=== PATIENT | female | born 1965 | race African-American/Black ===

== ENCOUNTER 2016-10-23 00:38 | Observation (INO) | payer SELFPAY ==
--- NOTE | 2016-10-23 01:20 | ER Document Report ---
ED General - General Chief Complaint: Chest Pain Stated Complaint: CHEST PAIN Time Seen by Provider: 10/23/16 01:07 Notes: Patient is a 51-year-old female who comes emergency department for chief complaint of chest pain, symptoms started prior to arrival while she was in an argument with her significant other, she was given aspirin and nitroglycerin by EMS, she currently denies any pain. She also states that she is "peeing all the time". She admits she is a type II diabetic, she used to be medicated with both blood pressure and diabetes oral medications, she has no primary care physician and takes no medications at this time. She denies ever having a heart attack, she states she thinks she had a stroke from her high blood pressure although she is not sure. She denies smoking, she drinks alcohol occasionally. TRAVEL OUTSIDE OF THE [place] IN LAST 30 DAYS: No - Related Data Allergies/Adverse Reactions: No Known Allergies Allergy (Verified 08/31/13 09:57) Past Medical History - General Information source: Patient - Social History Smoking Status: Never Smoker Frequency of alcohol use: Occasional Drug Abuse: None Lives with: Family Family History: Hypertension, None - Past Medical History Cardiac Medical History: Reports: Hx Hypercholesterolemia, Hx Hypertension Pulmonary Medical History: Reports: Hx Asthma Denies: Hx Tuberculosis Neurological Medical History: Reports: Hx Cerebrovascular Accident Endocrine Medical History: Reports: Hx Diabetes Mellitus Type 2 Psychiatric Medical History: Denies: Hx Depression Surgical Hx: Negative - Immunizations Hx Diphtheria, Pertussis, Tetanus Vaccination: Yes Review of Systems - Review of Systems Constitutional: No symptoms reported EENT: No symptoms reported Cardiovascular: See HPI Respiratory: No symptoms reported Gastrointestinal: No symptoms reported Genitourinary: No symptoms reported Female Genitourinary: No symptoms reported Musculoskeletal: No symptoms reported Skin: No symptoms reported Hematologic/Lymphatic: No symptoms reported Neurological/Psychological: See HPI Physical Exam - Vital signs Vitals: Resp Pulse Ox 16 96 10/23/16 01:03 10/23/16 01:03 Interpretation: Normal - General General appearance: Appears well, Alert In distress: None - HEENT Head: Normocephalic, Atraumatic Eyes: Normal Conjunctiva: Normal Extraocular movements intact: Yes Eyelashes: Normal Pupils: PERRL Mouth/Lips: Normal Mucous membranes: Normal Pharynx: Normal Neck: Normal - Respiratory Respiratory status: No respiratory distress Chest status: Nontender Breath sounds: Normal Chest palpation: Normal - Cardiovascular Rhythm: Regular. No: Tachycardia Heart sounds: Normal auscultation, S1 appreciated, S2 appreciated Murmur: No - Abdominal Inspection: Normal Distension: No distension Bowel sounds: Normal Tenderness: Nontender. No: Tender, Guarding Organomegaly: No organomegaly - Back Back: Normal, Nontender. No: Tender - Extremities General upper extremity: Normal inspection, Nontender, Normal color, Normal ROM , Normal temperature General lower extremity: Normal inspection, Nontender, Normal color, Normal ROM , Normal temperature, Normal weight bearing. No: Rosa's sign - Neurological Neuro grossly intact: Yes Cognition: Normal Orientation: AAOx4 Reynolds Coma Scale Eye Opening: Spontaneous Caitlyn Coma Scale Verbal: Oriented Reynolds Coma Scale Motor: Obeys Commands Reynolds Coma Scale Total: 15 Speech: Normal Motor strength normal: LUE, RUE, LLE, RLE Sensory: Normal - Psychological Associated symptoms: Normal affect, Normal mood - Skin Skin Temperature: Warm Skin Moisture: Dry Skin Color: Normal Course - Re-evaluation Re-evalutation: EKG shows sinus rhythm, no T-wave inversions or ST segment changes in consecutive leads. Patient chest pain-free on my evaluation. She is well- appearing. Clear lungs, soft abdomen. CBC is unremarkable. Chemistry shows hyperglycemia with no acidosis. Urinalysis shows glucose but is generally unremarkable with a few white blood cells and bacteria. Culture placed. Chest x-ray is unremarkable. Cardiac enzymes initially normal. 10/23/16 Cardiac enzymes cycled and still unremarkable. Patient has remained chest pain- free after initial nitroglycerin and aspirin doses. Discussed with Dr. You. Symptoms still concerning, along with patient's history of diabetes, hypertension, and lack of any primary care or cardiology follow-up guaranteed. I did discuss with patient, she states she is in full agreement with telemetry observation admission for additional evaluation. Discussed with Dr. Beckwith, patient will be admitted to telemetry observation. - Vital Signs Vital signs: Temp Pulse Resp BP Pulse Ox 97.9 F 16 135/90 H 99 10/23/16 01:06 10/23/16 04:01 10/23/16 04:00 10/23/16 04:01 - Laboratory Result Diagrams: 10/23/16 01:12 10/23/16 01:12 Laboratory results interpreted by me: 10/23/16 10/23/16 10/23/16 00:53 01:12 01:12 RDW 15.6 H Potassium 3.4 L Glucose 287 H Urine Glucose (UA) >=500 H Urine Blood SMALL H Ur Leukocyte Esterase SMALL H Discharge - Discharge Clinical Impression: Chest pain Qualifiers: Chest pain type: unspecified Qualified Code(s): R07.9 - Chest pain, unspecified Condition: Stable Disposition: ADMITTED OBSERVATION Admitting Provider: Hospitalist Unit Admitted: Telemetry
[2016-10-23 01:26] LABS: ABSOLUTE EOSINOPHILS # (AUTO) 0.3 10^3/uL (0.0-0.6); ABSOLUTE LYMPHOCYTES (AUTO) 1.9 10^3/uL (0.5-4.7); ABSOLUTE MONOCYTES (AUTO) 0.6 10^3/uL (0.1-1.4); ABSOLUTE NEUT (AUTO) 2.6 10^3/uL (1.7-8.2); BASOPHILS % (AUTO) 0.8 % (0-2); EOSINOPHILS % (AUTO) 5.1 % (0-6); HEMATOCRIT 37.5 % (36.0-47.0); HEMOGLOBIN 12.9 g/dL (12.0-15.5); HGB HCT DIFFERENCE 1.2; LYMPHOCYTES % (AUTO) 35.5 % (13-45); MEAN CORPUSCULAR HEMOGLOBIN 30.7 pg (27.0-33.4); MEAN CORPUSCULAR HGB CONC 34.4 g/dL (32.0-36.0); MEAN CORPUSCULAR VOLUME 89 fl (80-97); MONOCYTES % (AUTO) 11.6 % (3-13); RED CELL DISTRIBUTION WIDTH 15.6 % (11.5-14.0); WHITE BLOOD COUNT 5.5 10^3/uL (4.0-10.5)
[2016-10-23 01:49] LABS: APPEARANCE,URINE CLEAR; BILIRUBIN,URINE NEGATIVE (NEGATIVE); GLUCOSE, URINE >=500 mg/dL (NEGATIVE); KETONES,URINE NEGATIVE (NEGATIVE); LEUKOCYTE ESTERASE,URINE SMALL (NEGATIVE); NITRITE,URINE NEGATIVE (NEGATIVE); PROTEIN,URINE NEGATIVE (NEGATIVE); UROBILINOGEN,URINE NEGATIVE mg/dL (<2.0)
[2016-10-23 02:01] LABS: ALANINE AMINOTRANSFERASE 26 U/L (9-52); ALBUMIN 4.1 g/dL (3.5-5.0); ALKALINE PHOSPHATASE 53 U/L (38-126); ANION GAP 15 (5-19); ASPARTATE AMINO TRANSFERASE 20 U/L (14-36); BILIRUBIN,DIRECT 0.4 mg/dL (0.0-0.4); BILIRUBIN,TOTAL 0.5 mg/dL (0.2-1.3); BLOOD UREA NITROGEN 10 mg/dL (7-20); CALCIUM 9.5 mg/dL (8.4-10.2); CARBON DIOXIDE 23 mmol/L (22-30); CHLORIDE 104 mmol/L (98-107); CREATINE KINASE 128 U/L (30-135); CREATININE RESULT 0.61 mg/dL (0.52-1.25); GLUCOSE 287 mg/dL (75-110); POTASSIUM 3.4 mmol/L (3.6-5.0); SODIUM 141.6 mmol/L (137-145); TOTAL PROTEIN 7.4 g/dL (6.3-8.2)
--- NOTE | 2016-10-23 02:11 | RADIOLOGY REPORT (SQ) ---
EXAM DESCRIPTION: CHEST SINGLE VIEW COMPLETED DATE/TIME: 10/23/2016 1:34 am REASON FOR STUDY: chest pain COMPARISON: 01.11.15 EXAM PARAMETERS: NUMBER OF VIEWS: One view. TECHNIQUE: Single frontal radiographic view of the chest acquired. RADIATION DOSE: NA LIMITATIONS: None. FINDINGS: LUNGS AND PLEURA: No opacities, masses or pneumothorax. No pleural effusion. MEDIASTINUM AND HILAR STRUCTURES: No masses. Contour normal. HEART AND VASCULAR STRUCTURES: Heart normal in size. Normal vasculature. BONES: No acute findings. HARDWARE: None in the chest. OTHER: No other significant finding. IMPRESSION: NO ACUTE RADIOGRAPHIC FINDING IN THE CHEST. TECHNICAL DOCUMENTATION: JOB ID: [id number]
[2016-10-23 02:13] LABS: CREATINE KINASE MB 0.89 ng/mL (<4.55)
[2016-10-23 02:15] LABS: TROPONIN I < 0.012 ng/mL
[2016-10-23] MEDS ORDERED: NORMAL SALINE 1000 ML 1,000 ML IV ONE (03:24)
[2016-10-23] MEDS ORDERED: NITROGLYCERIN 0.4 MG/TAB 25 TAB/BOTTLE SL PRN (07:39)
[2016-10-23] MEDS ORDERED: DIAZEPAM 5 MG TABLET PO PRN (07:39)
[2016-10-23] MEDS ORDERED: MORPHINE SULFATE 10 MG/ML INJ IV PRN (07:39)
[2016-10-23] MEDS ORDERED: ASPIRIN 81 MG TABLET, CHEWABLE PO ONE (07:39)
[2016-10-23] MEDS ORDERED: METFORMIN HCL 500 MG TABLET PO SCH (08:00)
[2016-10-23] MEDS ORDERED: ACETAMINOPHEN 325 MG TABLET PO PRN (09:04)
[2016-10-23] MEDS: METOPROLOL SUCCINATE 25 MG TAB.SR.24H PO SCH (09:36)
[2016-10-23] MEDS: FAMOTIDINE 20 MG TABLET PO SCH ×2 (09:36→21:52)
[2016-10-23] MEDS: ASPIRIN 325 MG TABLET, ENT COATED PO SCH (09:37)
[2016-10-23] MEDS: DOCUSATE SODIUM 100 MG CAPSULE PO SCH ×2 (09:37→17:10)
[2016-10-23] MEDS ORDERED: LISINOPRIL 10 MG TABLET PO SCH (10:00)
[2016-10-23 10:13] LABS: CREATINE KINASE MB 0.71 ng/mL (<4.55)
[2016-10-23 10:18] LABS: TROPONIN I < 0.012 ng/mL
[2016-10-23] MEDS: FLUTICASONE NASAL SPRAY 50 MCG/SPRY 120 SPRAY/16 GM NASL SCH ×2 (10:23→21:52)
--- NOTE | 2016-10-23 10:24 | EKG REPORT ---
SEVERITY:- ABNORMAL ECG - SINUS RHYTHM PROBABLE LEFT ATRIAL ABNORMALITY PROBABLE LVH WITH SECONDARY REPOL ABNRM BORDERLINE PROLONGED QT INTERVAL : Confirmed by: Kenya Keenan 23-Oct-2016 10:23:31
[2016-10-23] MEDS ORDERED: GLUCAGON,HUMAN RECOMB 1 MG INJ IM PRN (13:56)
[2016-10-23] MEDS ORDERED: DEXTROSE 40% GEL 15 GM TUBE PO PRN ×2 (13:56)
[2016-10-23] MEDS ORDERED: DEXTROSE 50%-WATER 25 GM/50 ML DISP.SYRIN IV PRN ×2 (13:56)
[2016-10-23] MEDS ORDERED: INSULIN LISPRO 100 UNIT/ML 3 ML VIAL SUBCUT PRN (13:56)
[2016-10-23 14:38] LABS: CREATINE KINASE MB 0.59 ng/mL (<4.55)
[2016-10-23 14:44] LABS: TROPONIN I < 0.012 ng/mL
[2016-10-23] MEDS: GLIPIZIDE 10 MG TABLET PO SCH (17:09)
[2016-10-23] MEDS: METFORMIN HCL 500 MG TABLET PO SCH (17:10)
[2016-10-23 20:25] LABS: CREATINE KINASE MB 0.46 ng/mL (<4.55)
[2016-10-23 20:32] LABS: TROPONIN I < 0.012 ng/mL
--- NOTE | 2016-10-23 21:07 | HISTORY AND PHYSICAL E ---
History and Physical NAME: VIRI PUENTES : 1965 AGE: 51Y ADMITTED: 10/23/2016 ROOM: 533 CHIEF COMPLAINT: Chest pain. HISTORY OF PRESENT ILLNESS: The patient is a 51-year-old female who has a history of diabetes mellitus and hypertension, who has not been on medication for greater than 1 year who presents after developing some substernal chest pain that was a pinching sensation while having an argument. She reports that it came and went easily after 1 minute without any associated diaphoresis, shortness of breath, nausea or vomiting. The patient reports no further chest pain since this time. She reports that she has had a cough for more than 1 month and does have clear sinus drainage which is chronic and bothersome for her. The patient is referred to the hospitalist service for chest pain. PAST MEDICAL HISTORY: 1. Diabetes mellitus. 2. Hypertension. PAST SURGICAL HISTORY: None. SOCIAL HISTORY: She does not smoke. She drinks two 40-ounce beers daily and denies illicit drugs. She denies any history of DTs or seizure. FAMILY HISTORY: Her mother and father both of stroke and they had hypertension. PRIMARY CARE PHYSICIAN: None. ALLERGIES: No known drug allergies. HOME MEDICATIONS: The patient currently takes no medications. CODE STATUS: FULL CODE. Her daughter, Kami Cisse, is her surrogate decision maker. REVIEW OF SYSTEMS: CONSTITUTIONAL: She denies fever or chills, weight loss, weight gain, anorexia. HEENT: Denies visual disturbance, headache, hearing loss. RESPIRATORY: Denies dyspnea, hemoptysis or pleurisy. Admits to cough without sputum production. CARDIAC: Admits to chest pain as outlined above. Denies PND, orthopnea or edema. ABDOMEN: Denies abdominal pain, nausea, vomiting, diarrhea, constipation, hematemesis, melena or hematochezia. GENITOURINARY: Denies dysuria, urgency, frequency or hematuria. SKIN: Denies rash or wounds. MUSCULOSKELETAL: Denies joint pain or swelling. NEUROLOGIC: Denies weakness, numbness, dizziness, dysphasia, dysarthria or ataxia. ENDOCRINE: Admits to polydipsia and polyuria. Denies hot or cold intolerance. PSYCHIATRIC: Denies depression, anxiety, hallucinations or delusions. HEMATOLOGIC: Denies easy bleeding or bruising. LABORATORY VALUES: White count of 5.5, hemoglobin 12.9, hematocrit 37.5 and platelets of 200. Troponin was less than 0.012. Creatinine of 0.61, glucose of 287 and a A1c of 8.4. Albumin of 4.1. Urine reveals small leukocyte esterase, small blood, 3 whites, 1+ bacteria. PHYSICAL EXAMINATION: VITAL SIGNS: Temperature is 97.9. Pulse of 88. Blood pressure of 169/93. Respiratory rate of 20. Saturation of 98% on room air. GENERAL: She is a well-fed, well-nourished female who appears well and is in no acute distress. HEENT: Normocephalic. No scleral icterus. Conjunctivae clear. Extraocular eye movements are intact. The pupils are equal, round, and reactive to light and accommodation. Her mucous membranes are moist. NECK: Reveals her trachea to be midline. She has no thyromegaly. RESPIRATORY: Clear to auscultation bilaterally without wheezes, rhonchi or rales. CARDIOVASCULAR: Regular rate and rhythm without appreciable murmur, rub or gallop. ABDOMEN: Soft, nontender to palpation, nondistended with active bowel sounds. She has no rebound, rigidity or guarding. Negative Zavaleta sign. RECTAL: Deferred. GENITOURINARY: Deferred. EXTREMITIES: Reveal no cyanosis, clubbing or edema. MUSCULOSKELETAL: Reveals no joint swelling or deformity. VASCULATURE: Reveals normal peripheral pulses. NEUROLOGIC: She is alert and oriented to person, place and time. She has normal speech. Her cranial nerves are grossly intact. Strength is 5/5 in all extremities. Tactile sensation is present in all extremities. SKIN: Reveals no rashes, wounds or worrisome skin lesions. PSYCHIATRIC: Normal mood and affect. IMPRESSION: This is a 51-year-old female with: 1. Chest pain. Likely secondary to anxiety or emotional distress. 2. Poorly controlled diabetes mellitus. 3. Hypertension. 4. Allergic rhinitis. 5. Mild hypokalemia. PLAN: 1. For patient's chest pain, we will place her on observation and rule out according to ACS. 2. For her diabetes mellitus, will place patient on metformin and Glipizide. She will be seen by the tobacco educator and we will perform Accu-Cheks before meals and at bedtime. 3. For hypertension, we will begin the patient on lisinopril 20 mg p.o. q.12 h., hydrochlorothiazide 25 mg p.o. daily and metoprolol XL 25 mg p.o. daily. 4. For her allergic rhinitis, we will place patient on Claritin and Flonase. Total time spent with the patient including physical examination, coordination of care and discussion with patient was 45 minutes of time. DICTATING PHYSICIAN: ABDI ENRIQUE M.D. [id number] PHY#: [id number] ID: [id number] JOB#: [id number] ACCT: [id number] cc:ABDI ENRIQUE M.D. >
[2016-10-23] MEDS: LISINOPRIL 10 MG TABLET PO SCH (21:52)
[2016-10-23] MEDS ORDERED: LORATADINE 10 MG TABLET PO SCH (22:00)
[2016-10-23] MEDS ORDERED: ATORVASTATIN CALCIUM 40 MG TABLET PO SCH (22:00)
[2016-10-24 00:49] LABS: URINE BARBITURATES SCREEN NEGATIVE; URINE METHADONE SCREEN NEGATIVE; URINE OPIATES LOW NEGATIVE; URINE PHENCYCLIDINE SCREEN NEGATIVE
[2016-10-24 05:13] LABS: CHOLESTEROL 272.91 mg/dL (0-200); CREATINE KINASE 69 U/L (30-135); Direct HDL 60 mg/dL (>40); TRIGLYCERIDES 110 mg/dL (<150)
[2016-10-24 05:24] LABS: DIRECT LDL 201 mg/dL (<100)
[2016-10-24] MEDS: METFORMIN HCL 500 MG TABLET PO SCH (08:01)
[2016-10-24] MEDS: GLIPIZIDE 10 MG TABLET PO SCH (08:01)
[2016-10-24] MEDS ORDERED: HYDROCHLOROTHIAZIDE 25 MG TABLET PO SCH (10:00)
[2016-10-24] MEDS: ASPIRIN 325 MG TABLET, ENT COATED PO SCH (10:19)
[2016-10-24] MEDS: DOCUSATE SODIUM 100 MG CAPSULE PO SCH (10:19)
[2016-10-24] MEDS: FAMOTIDINE 20 MG TABLET PO SCH (10:19)
[2016-10-24] MEDS: METOPROLOL SUCCINATE 25 MG TAB.SR.24H PO SCH (10:20)
[2016-10-24] MEDS: LISINOPRIL 10 MG TABLET PO SCH (10:21)
[2016-10-24] MEDS: FLUTICASONE NASAL SPRAY 50 MCG/SPRY 120 SPRAY/16 GM NASL SCH (10:21)
[2016-10-24] MEDS ORDERED: ACETAMINOPHEN 325 MG TABLET PO PRN (12:00)
[2016-10-24] MEDS ORDERED: DIAZEPAM 5 MG TABLET PO PRN (12:00)
[2016-10-24 12:11] VITALS: BP 158/93
--- NOTE | 2016-10-24 19:53 | PDOC DISCHARGE SUMMARY ---
General - Admit/Disc Date/PCP Admission Date/Primary Care Provider: 10/23/16 07:40 Discharge Date: 10/24/16 - Discharge Diagnosis (1) Chest pain Is this a current diagnosis for this admission?: Yes (2) Diabetes mellitus type 2 Is this a current diagnosis for this admission?: Yes (3) Dyslipidemia Is this a current diagnosis for this admission?: Yes (4) Hypertensive urgency Is this a current diagnosis for this admission?: Yes - Additional Information Resuscitation Status: Full Code Discharge Diet: Cardiac, Diabetic Discharge Activity: Activity As Tolerated Home Medications: Aspirin [Ecotrin 325 mg EC Tablet] 325 mg PO DAILY #90 tabec 10/24/16 Atorvastatin Calcium [Lipitor 40 mg Tablet] 40 mg PO QHS #30 tablet 10/24/16 Fluticasone Propionate [Flonase Nasal Reston 50 Mcg/Reston 16 gm] 2 spray NASL Q12 #1 bot 10/24/16 Glipizide [Glucotrol 10 mg Tablet] 10 mg PO BIDBS #60 tablet 10/24/16 Lisinopril/Hydrochlorothiazide [Lisinopril-Hctz 20-12.5 mg Tab] 1 each PO BID # 60 tablet 10/24/16 Loratadine [Claritin 10 mg Tablet] 10 mg PO QHS #30 tablet 10/24/16 Metformin HCl [Glucophage 500 mg Tablet] 500 mg PO BIDACBS #60 tablet 10/24/16 Metoprolol Succinate [Toprol Xl 50 mg Tab.sr] 50 mg PO DAILY #30 tab.sr.24h History of Present Illness History of Present Illness: See H&P for full HPI Hospital Course Hospital Course: Patient was brought in and ruled out for acute coronary syndrome. Patient was restarted on blood pressure medications as well as diabetic medications. Patient was advised to stop drinking alcohol. Patient was discharged in stable condition [facility]. Physical Exam Vital Signs: Temp Pulse Resp BP Pulse Ox 98.7 F 75 18 129/81 H 100 10/24/16 11:51 10/24/16 11:51 10/24/16 11:51 10/24/16 11:51 10/24/16 11:51 Intake & Output 10/23/16 10/24/16 10/25/16 06:59 06:59 06:59 Intake Total 1565 Balance 1565 Weight 66.4 kg Exam: General: Awake alert and oriented x3, no acute respiratory distress HEENT: AT/NC, PERRL, EOMI, oropharynx is moist, pink, no scleral icterus, no conjunctival injection Neck: No JVD, trachea midline Chest: Clear to auscultation bilaterally, no wheezes rhonchi or rales CV: Regular rate and rhythm, normal S1 and S2, no murmur, rub, or gallop Abdomen: Soft, nontender to palpation, nondistended, active bowel sounds; no rebound, rigidity, or guarding Extremities: No cyanosis, clubbing or edema Neuro: Cranial nerves II through XII are grossly intact without focal deficits; awake alert and oriented x3 Psych: Normal mood and affect Results Laboratory Results: 10/24/16 03:45 Triglycerides 110 Cholesterol 272.91 H LDL Cholesterol Direct 201 H VLDL Cholesterol 22.0 HDL Cholesterol 60 10/23/16 10/23/16 10/23/16 09:16 13:33 19:40 Creatine Kinase CK-MB (CK-2) 0.71 0.59 0.46 Troponin I < 0.012 < 0.012 < 0.012 10/24/16 03:45 Creatine Kinase 69 CK-MB (CK-2) Troponin I Impressions: Chest X-Ray 10/23/16 01:18 IMPRESSION: NO ACUTE RADIOGRAPHIC FINDING IN THE CHEST. Status: Imported from PACS Qualifiers [facility] BEING DISCHARGED WITH ANY OF THE FOLLOWING DIAGNOSIS?: No Plan Time Spent: Less than 30 Minutes
--- NOTE | 2016-10-24 21:26 | EKG REPORT ---
SEVERITY:- BORDERLINE ECG - SINUS RHYTHM PROBABLE LEFT ATRIAL ABNORMALITY BORDERLINE T ABNORMALITIES, DIFFUSE LEADS : Confirmed by: Kenya Keenan 24-Oct-2016 21:26:03
[2016-10-25] MEDS ORDERED: METOPROLOL SUCCINATE 25 MG TAB.SR.24H PO SCH (10:00)
== END 2016-10-24 12:40 | disposition home or self-care (01) ==
LOC: ER 00:38 → EH 06:43 → UNDOADMOB 06:43 → EH 07:40 → 5 10:11
PROVIDERS: ADMIT Family Medicine; ATTEND Family Medicine
DX: R07.2 Precordial pain (principal); E11.65 Type 2 diabetes mellitus with hyperglycemia; E78.5 Hyperlipidemia, unspecified; I16.0 Hypertensive urgency; R05 Cough; E87.6 Hypokalemia; J30.9 Allergic rhinitis, unspecified; Z79.82 Long term (current) use of aspirin; Z79.899 Other long term (current) drug therapy; Z79.84 Long term (current) use of oral hypoglycemic drugs; Z82.49 Family history of ischemic heart disease and other diseases of the circulatory system
CPT/HCPCS: 93005 ×2; 99285; 36415 ×2; 87086; 82553; 82962 ×2; 82550 ×2; 85025; 80053; 81001; 84484; 80307; 83036; 80061; 71010; 93010 ×2; G0378 ×2; J3490 ×3; J1815; J7030

== ENCOUNTER 2017-07-09 07:39 | Emergency (ER) | payer SELFPAY ==
[2017-07-09] MEDS ORDERED: HYDROMORPHONE HCL INJ/PF 2 MG/ML AMPULE IV ONE ×2 (08:08→11:35)
[2017-07-09] MEDS ORDERED: NORMAL SALINE 1000 ML 1,000 ML IV ONE (08:08)
[2017-07-09 08:27] LABS: ABSOLUTE BASOPHILS # (AUTO) 0.1 10^3/uL (0.0-0.2); ABSOLUTE EOSINOPHILS # (AUTO) 0.2 10^3/uL (0.0-0.6); ABSOLUTE MONOCYTES (AUTO) 0.7 10^3/uL (0.1-1.4); ABSOLUTE NEUT (AUTO) 3.7 10^3/uL (1.7-8.2); BASOPHILS % (AUTO) 1.1 % (0-2); EOSINOPHILS % (AUTO) 2.5 % (0-6); HEMATOCRIT 41.1 % (36.0-47.0); HEMOGLOBIN 14.1 g/dL (12.0-15.5); LYMPHOCYTES % (AUTO) 29.5 % (13-45); MEAN CORPUSCULAR HEMOGLOBIN 29.6 pg (27.0-33.4); MEAN CORPUSCULAR HGB CONC 34.3 g/dL (32.0-36.0); MEAN CORPUSCULAR VOLUME 86 fl (80-97); PLATELET COUNT 231 10^3/uL (150-450); RED BLOOD COUNT 4.77 10^6/uL (3.72-5.28); RED CELL DISTRIBUTION WIDTH 16.1 % (11.5-14.0); SEGMENTED NEUTROPHILS % (AUTO) 55.9 % (42-78); TOTAL CELLS COUNTED % (AUTO) 100 %; WHITE BLOOD COUNT 6.6 10^3/uL (4.0-10.5)
[2017-07-09 08:48] LABS: ALANINE AMINOTRANSFERASE 21 U/L (9-52); ALBUMIN 4.1 g/dL (3.5-5.0); ALKALINE PHOSPHATASE 69 U/L (38-126); ANION GAP 14 (5-19); ASPARTATE AMINO TRANSFERASE 16 U/L (14-36); BILIRUBIN,DIRECT 0.3 mg/dL (0.0-0.4); BILIRUBIN,TOTAL 0.7 mg/dL (0.2-1.3); BLOOD UREA NITROGEN 12 mg/dL (7-20); CALCIUM 10.5 mg/dL (8.4-10.2); CARBON DIOXIDE 26 mmol/L (22-30); CHLORIDE 98 mmol/L (98-107); LIPASE 106.1 U/L (23-300); POTASSIUM 4.3 mmol/L (3.6-5.0); SODIUM 137.8 mmol/L (137-145); TOTAL PROTEIN 7.5 g/dL (6.3-8.2)
[2017-07-09 08:59] LABS: GLUCOSE 517 mg/dL (75-110)
[2017-07-09 09:00] LABS: APPEARANCE,URINE SLIGHTLY-CLOUDY; BILIRUBIN,URINE NEGATIVE (NEGATIVE); COLOR,URINE STRAW; GLUCOSE, URINE >=500 mg/dL (NEGATIVE); KETONES,URINE NEGATIVE (NEGATIVE); LEUKOCYTE ESTERASE,URINE TRACE (NEGATIVE); NITRITE,URINE NEGATIVE (NEGATIVE); PROTEIN,URINE NEGATIVE (NEGATIVE); UROBILINOGEN,URINE NEGATIVE mg/dL (<2.0)
[2017-07-09] MEDS ORDERED: INSULIN REG, HUMAN 100 UNIT/ML 3 ML VIAL (PYX) SUBCUT ONE (09:08)
[2017-07-09] MEDS ORDERED: ONDANSETRON HCL INJ/PF 4 MG/2 ML SDV IV ONE (09:51)
--- NOTE | 2017-07-09 11:28 | RADIOLOGY REPORT (SQ) ---
EXAM DESCRIPTION: CT ABD/PELVIS WITH IV ORAL COMPLETED DATE/TIME: 07/09/2017 11:14 am REASON FOR STUDY: rlq pain COMPARISON: None. TECHNIQUE: CT scan of the abdomen and pelvis performed with intravenous and oral contrast using ramo yenni scanning technique with dynamic intravenous contrast injection. Images reviewed with lung, soft t issue, and bone windows. Reconstructed coronal and sagittal MPR images reviewed. Delayed images for e valuation of the urinary system also acquired. All images stored on PACS. All CT scanners at this facility use dose modulation, iterative reconstruction, and/or weight based d osing when appropriate to reduce radiation dose to as low as reasonably achievable (ALARA). [facility]: Dose Right [facility]: CareDose [facility]: Dose Right [facility]: Teradose 4D [facility]: [employer] CONTRAST TYPE AND DOSE: contrast/concentration: Isovue 370.00 mg/ml; Total Contrast Delivered: 59.0 ml; Total Saline Delivered: 65.0 ml RENAL FUNCTION: Creatinine 0.6 RADIATION DOSE: CT Rad equipment meets quality standard of care and radiation dose reduction techniq ues were employed. CTDIvol: 5.1 - 6.5 mGy. DLP: 621 mGy-cm.. LIMITATIONS: None. FINDINGS: LOWER CHEST: Motion artifact. Clear. LIVER: Normal size. No masses. No dilated ducts. SPLEEN: Normal size. No focal lesions. PANCREAS: No masses. No significant calcifications. No adjacent inflammation or peripancreatic fluid collections. Pancreatic duct not dilated. GALLBLADDER: No identified stones by CT criteria. No inflammatory changes to suggest cholecystitis. ADRENAL GLANDS: No significant masses or asymmetry. RIGHT KIDNEY AND URETER: No solid masses. No significant calcification. No hydronephrosis or hydroure ter. LEFT KIDNEY AND URETER: No solid masses. No significant calcification. No hydronephrosis or hydrouret er. AORTA AND VESSELS: No aneurysm. No dissection. Renal arteries, SMA, celiac without stenosis. RETROPERITONEUM: No retroperitoneal adenopathy, hemorrhage or masses. BOWEL AND PERITONEAL CAVITY: No obstruction. No visualized masses. No free fluid. No inflammatory ch anges or thickening of bowel wall. APPENDIX: Normal. PELVIS: Enlarged lobulated appearance of the uterus. Rounded masses typically prominent near the fun dus consistent with fibroids. Up to 7.6 cm transverse dimension if not larger. No other pelvic mass . Mild bladder distention. No gross bladder stones or masses. ABDOMINAL WALL: No masses. No hernias. BONES: No significant or acute findings. OTHER: No other significant finding. IMPRESSION: 1. No acute or suspicious abnormality. Right lower quadrant structures look normal, inc luding the appendix. 2. Fibroid uterus. TECHNICAL DOCUMENTATION: JOB ID: [id number] Quality ID # [id number]: Final reports with documentation of one or more dose reduction techniques (e.g., Au tomated exposure control, adjustment of the mA and/or kV according to patient size, use of iterative reconstruction technique) 2010 [employer]- All Rights Reserved Reading location - IP/workstation name: [email or web address]
--- NOTE | 2017-07-09 12:27 | ER Document Report ---
ED GI/ - General Chief Complaint: Abdominal Pain Stated Complaint: ABDOMINAL PAIN Time Seen by Provider: 07/09/17 07:50 Mode of Arrival: Ambulatory Information source: Patient Notes: Pt is a 52 year old female who presents to the ER today for rlq abdominal pain x 5 days. She admits to nausea but no vomiting. She denies fever/chills, diarrhea. She still has all of her abdominal organs. She denies dysuria or abnormal vaginal discharge/bleeding. TRAVEL OUTSIDE OF THE [place] IN LAST 30 DAYS: No - Related Data Allergies/Adverse Reactions: No Known Allergies Allergy (Verified 07/09/17 07:39) Past Medical History - General Information source: Patient - Social History Smoking Status: Never Smoker Chew tobacco use (# tins/day): No Frequency of alcohol use: Heavy Drug Abuse: None Family History: Hypertension, None Patient has suicidal ideation: No Patient has homicidal ideation: No - Past Medical History Cardiac Medical History: Reports: Hx Hypercholesterolemia, Hx Hypertension Pulmonary Medical History: Reports: Hx Asthma Denies: Hx Tuberculosis Neurological Medical History: Reports: Hx Cerebrovascular Accident Endocrine Medical History: Reports: Hx Diabetes Mellitus Type 2 Renal/ Medical History: Denies: Hx Peritoneal Dialysis Psychiatric Medical History: Denies: Hx Depression - Immunizations Hx Diphtheria, Pertussis, Tetanus Vaccination: Yes Review of Systems - Review of Systems Constitutional: No symptoms reported EENT: No symptoms reported Cardiovascular: No symptoms reported Respiratory: No symptoms reported Gastrointestinal: See HPI Genitourinary: No symptoms reported Female Genitourinary: No symptoms reported Musculoskeletal: No symptoms reported Skin: No symptoms reported Hematologic/Lymphatic: No symptoms reported Neurological/Psychological: No symptoms reported Physical Exam - Vital signs Vitals: Temp Pulse Resp BP Pulse Ox 98.2 F 114 H 16 148/89 H 99 07/09/17 07:42 07/09/17 07:42 07/09/17 07:42 07/09/17 07:42 07/09/17 07:42 - Notes Notes: PHYSICAL EXAMINATION: GENERAL: uncomfortable appearing, but in no acute distress. HEAD: Atraumatic, normocephalic. EYES: pupils equal round and reactive to light, extraocular movements intact, sclera anicteric, conjunctiva are normal. ENT: ear canals without erythema or foreign body, TMs pearly aponte with good bony landmarks, nares patent, oropharynx clear without exudates. Moist mucous membranes. Airway patent NECK: Normal range of motion, supple without lymphadenopathy LUNGS: CTAB and equal. No wheezes rales or rhonchi. HEART: Regular rate and rhythm without murmurs ABDOMEN: soft, rlq, suprapubic tenderness. No guarding, no rebound BACK: no vertebral tenderness, normal ROM GI/: no CVA tenderness EXTREMITIES: Normal range of motion, no pitting edema. No cyanosis. NEUROLOGICAL: Cranial nerves grossly intact. Normal sensory/motor exams. Good and equal strength bilaterally PSYCH: Normal mood, normal affect. SKIN: Warm, Dry, normal turgor, no rashes or lesions noted Course - Re-evaluation Re-evalutation: 07/09/17 23:12 pt is a diabetic and has a sugar of 517 on arrival here. She is afebrile with normal vitals. her anion gap is normal. She has no vomited her but is nauseas. CT abd/pelvis with IV and oral contrast shows fibroids in the uterus but a normal appendix and otherwise normal CT scan. labwork is otherwise unremarkable , with insulin her glucose decreased to 356. I advise that she continue her normal diabetic medications and check her sugar regularly, follow up with her pcp and obgyn about her fibroid uterus. 07/09/17 23:15 - Vital Signs Vital signs: Temp Pulse Resp BP Pulse Ox 97.6 F 75 18 132/81 H 96 07/09/17 12:45 07/09/17 12:45 07/09/17 12:45 07/09/17 12:45 07/09/17 12:45 - Laboratory Result Diagrams: 07/09/17 08:08 07/09/17 08:08 Laboratory results interpreted by me: 07/09/17 07/09/17 07/09/17 08:08 08:08 08:24 RDW 16.1 H Glucose 517 H* POC Glucose Calcium 10.5 H Urine Glucose (UA) >=500 H Ur Leukocyte Esterase TRACE H 07/09/17 11:45 RDW Glucose POC Glucose 356 H Calcium Urine Glucose (UA) Ur Leukocyte Esterase Discharge - Discharge Clinical Impression: Diabetes mellitus type 2, RLQ abdominal pain Fibroid uterus Qualifiers: Uterine leiomyoma location: unspecified location Qualified Code(s): D25.9 - Leiomyoma of uterus, unspecified Condition: Stable Disposition: HOME, SELF-CARE Additional Instructions: Return immediately for any new or worsening symptoms. Follow up with [facility], call tomorrow to make followup appointment. Prescriptions: Ondansetron [Zofran Odt 4 mg Tablet] 1 tab PO Q4HP PRN #20 tab.rapdis PRN Reason: Ketorolac Tromethamine [Toradol 10 mg Tablet] 10 mg PO Q6HP PRN #20 tablet PRN Reason: Referrals: LINCOLN GLORIA MD [ACTIVE STAFF] - Follow up as needed
[2017-07-09 13:03] VITALS: BP 132/81
== END 2017-07-09 12:49 | disposition home or self-care (01) ==
LOC: ER 07:39
DX: D25.9 Leiomyoma of uterus, unspecified (principal); E11.9 Type 2 diabetes mellitus without complications; R10.31 Right lower quadrant pain; I10 Essential (primary) hypertension; J45.909 Unspecified asthma, uncomplicated; R11.0 Nausea; Z79.899 Other long term (current) drug therapy
CPT/HCPCS: 99284; 36415; 82962; 83690; 85025; 81025; 80053; 81001; 74177; J1170; J1815; J2405; J7030

== ENCOUNTER 2019-02-07 12:49 | Emergency (ER) | payer SELFPAY ==
--- NOTE | 2019-02-07 13:22 | ER Document Report ---
ED Medical Screen (RME) - General Chief Complaint: Vaginal Pain Stated Complaint: VAGINAL PAIN Time Seen by Provider: 02/07/19 13:17 Mode of Arrival: Ambulatory Information source: Patient Notes: 53-year-old female presented to ED for complaint of vaginal itching irritation with bumps to the area. She states the bumps are very itchy. She states this started last week. She states she has never had anything like this in the past. She is alert oriented respirations regular nonlabored speaking in full sentences. She states the discomfort is a #4 at this time. She denies any discharge or bleeding. States she is menopausal. She denies use of tobacco or drugs. She states she drinks about a sixpack of beer a day. She states she constantly spits. She has a bad wisdom tooth that is been hurting for at least a week. She states she has not been to the dentist because she does not have any insurance. Patient states she is on blood pressure medicine and her blood pressure still stays high every day. I have greeted and performed a rapid initial assessment of this patient. A comprehensive ED assessment and evaluation of the patient, analysis of test results and completion of medical decision making process will be conducted by an additional ED providers. TRAVEL OUTSIDE OF THE [place] IN LAST 30 DAYS: No - Related Data Allergies/Adverse Reactions: No Known Allergies Allergy (Verified 02/07/19 13:17) Past Medical History - Past Medical History Cardiac Medical History: Reports: Hx Hypercholesterolemia, Hx Hypertension Pulmonary Medical History: Reports: Hx Asthma Denies: Hx Tuberculosis Neurological Medical History: Reports: Hx Cerebrovascular Accident Endocrine Medical History: Reports: Hx Diabetes Mellitus Type 2 Renal/ Medical History: Denies: Hx Peritoneal Dialysis Psychiatric Medical History: Denies: Hx Depression - Immunizations Hx Diphtheria, Pertussis, Tetanus Vaccination: Yes Physical Exam - Vital signs Vitals: Temp Pulse Resp BP Pulse Ox 97.8 F 95 16 176/101 H 99 02/07/19 12:56 02/07/19 12:56 02/07/19 12:56 02/07/19 12:56 02/07/19 12:56 Course - Vital Signs Vital signs: Temp Pulse Resp BP Pulse Ox 97.8 F 95 16 176/101 H 99 02/07/19 12:56 02/07/19 12:56 02/07/19 12:56 02/07/19 12:56 02/07/19 12:56
[2019-02-07 13:53] LABS: ABSOLUTE BASOPHILS # (AUTO) 0.1 10^3/uL (0.0-0.2); ABSOLUTE EOSINOPHILS # (AUTO) 0.2 10^3/uL (0.0-0.6); ABSOLUTE LYMPHOCYTES (AUTO) 2.6 10^3/uL (0.5-4.7); ABSOLUTE MONOCYTES (AUTO) 0.7 10^3/uL (0.1-1.4); HEMATOCRIT 41.4 % (36.0-47.0); HEMOGLOBIN 14.4 g/dL (12.0-15.5); LYMPHOCYTES % (AUTO) 39.8 % (13-45); MEAN CORPUSCULAR HEMOGLOBIN 31.5 pg (27.0-33.4); MEAN CORPUSCULAR HGB CONC 34.6 g/dL (32.0-36.0); MEAN CORPUSCULAR VOLUME 91 fl (80-97); MONOCYTES % (AUTO) 10.5 % (3-13); PLATELET COUNT 219 10^3/uL (150-450); RED BLOOD COUNT 4.55 10^6/uL (3.72-5.28); RED CELL DISTRIBUTION WIDTH 13.3 % (11.5-14.0); SEGMENTED NEUTROPHILS % (AUTO) 45.7 % (42-78); TOTAL CELLS COUNTED % (AUTO) 100 %; WHITE BLOOD COUNT 6.6 10^3/uL (4.0-10.5)
[2019-02-07 14:06] LABS: APPEARANCE,URINE CLEAR; BILIRUBIN,URINE NEGATIVE (NEGATIVE); COLOR,URINE STRAW; GLUCOSE, URINE >=500 mg/dL (NEGATIVE); KETONES,URINE NEGATIVE (NEGATIVE); PROTEIN,URINE 30 mg/dL (NEGATIVE); URINE SPECIFIC GRAVITY 1.021; UROBILINOGEN,URINE NEGATIVE mg/dL (<2.0)
[2019-02-07 14:14] LABS: ALBUMIN 4.6 g/dL (3.5-5.0); ALKALINE PHOSPHATASE 64 U/L (38-126); ANION GAP 12 (5-19); ASPARTATE AMINO TRANSFERASE 19 U/L (14-36); BILIRUBIN,DIRECT 0.1 mg/dL (0.0-0.4); BILIRUBIN,TOTAL 0.5 mg/dL (0.2-1.3); BLOOD UREA NITROGEN 10 mg/dL (7-20); CALCIUM 10.2 mg/dL (8.4-10.2); CARBON DIOXIDE 28 mmol/L (22-30); CHLORIDE 101 mmol/L (98-107); GLUCOSE 374 mg/dL (75-110); POTASSIUM 4.3 mmol/L (3.6-5.0); TOTAL PROTEIN 8.1 g/dL (6.3-8.2)
--- NOTE | 2019-02-07 15:36 | ER Document Report ---
ED General - General Chief Complaint: Vaginal Itching Stated Complaint: VAGINAL PAIN Time Seen by Provider: 02/07/19 13:17 Mode of Arrival: Ambulatory TRAVEL OUTSIDE OF THE [place] IN LAST 30 DAYS: No - HPI Notes: Patient is a 53-year-old female with history of hypertension and type 2 diabetes who presents for 2 complaints. The first is right upper dental pain to #2 over the past week. She has not noticed any obvious swelling or abscess to the area. Patient states that she has had issues with his tooth in the past. She is able to eat and drink without difficulty. She is urinating normally and having normal bowel movements. Patient also complains of some vaginal itching near the outside and on the inside without any pain associated. She has not noticed any vaginal odor or bleeding otherwise. She has no concern of STD or STI and does not want testing for chlamydia/gonorrhea. Denies any headache, fever, neck pain, URI, sore throat, chest pain, palpitations, syncope, cough, shortness of breath, wheeze, dyspnea, abdominal pain, nausea/vomiting/diarrhea, urinary r etention, dysuria, hematuria, loss of control of bowel or bladder, numbness/tingling, saddle anesthesia, muscle paralysis/weakness, or rash. - Related Data Allergies/Adverse Reactions: No Known Allergies Allergy (Verified 02/07/19 13:17) Past Medical History - General Information source: Patient - Social History Smoking Status: Never Smoker Family History: Hypertension, None Patient has suicidal ideation: No Patient has homicidal ideation: No - Past Medical History Cardiac Medical History: Reports: Hx Hypercholesterolemia, Hx Hypertension Pulmonary Medical History: Reports: Hx Asthma Denies: Hx Tuberculosis Neurological Medical History: Reports: Hx Cerebrovascular Accident Endocrine Medical History: Reports: Hx Diabetes Mellitus Type 2 Renal/ Medical History: Denies: Hx Peritoneal Dialysis Psychiatric Medical History: Denies: Hx Depression - Immunizations Hx Diphtheria, Pertussis, Tetanus Vaccination: Yes Review of Systems - Review of Systems -: Yes All other systems reviewed and negative Physical Exam - Vital signs Vitals: Temp Pulse Resp BP Pulse Ox 97.8 F 95 16 176/101 H 99 02/07/19 12:56 02/07/19 12:56 02/07/19 12:56 02/07/19 12:56 02/07/19 12:56 - Notes Notes: PHYSICAL EXAMINATION: GENERAL: Well-appearing, well-nourished and in no acute distress. HEAD: Atraumatic, normocephalic. EYES: Pupils equal round and reactive to light, extraocular movements intact, conjunctiva are normal. ENT: Nares patent, oropharynx clear without exudates. Moist mucous membranes. No tonsillar hypertrophy or erythema. Mouth: Poor dentition. + mild decay and mild gingivitis. No obvious abscess or discharge noted. No facial swelling. + tenderness to tooth #2. NECK: Normal range of motion, supple without lymphadenopathy LUNGS: Breath sounds clear to auscultation bilaterally and equal. No wheezes rales or rhonchi. HEART: Regular rate and rhythm without murmurs ABDOMEN: Soft, nontender, nondistended abdomen. No guarding, no rebound. Nor mal bowel sounds present. CVA tenderness negative bilaterally. Female : No inguinal adenopathy. External genitalia without erythema, lesions, or masses. No adnexal tenderness. Accompanied by female nurse, gissell. Musculoskeletal: FROM to passive/active. Strength 5+/5. Extremities: No cyanosis/clubbing/edema b/l. Peripheral pulses 2+. Capillary refill less than 3 seconds. NEUROLOGICAL: Cranial nerves grossly intact. Normal speech, normal gait. Normal sensory, motor exams PSYCH: Normal mood, normal affect. SKIN: Warm, Dry, normal turgor, no rashes or lesions noted. Course - Re-evaluation Re-evalutation: 02/07/19 16:14 Patient is an afebrile, well-hydrated, 53-year-old female who presents with bacterial vaginosis and yeast infection with dental pain, possible dental infection. Vitals are acceptable without significant tachycardia, tachypnea, hypoxia. PE is otherwise unremarkable. Patient is nontoxic-appearing and is tolerating p.o. without difficulty. See lab results. Patient's abdomen is soft and nontender throughout. No further labs or imaging warranted at this time. Low suspicion for any acute abd, meningitis, sepsis, peritonsillar/pharyngeal abscess, respiratory compromise, Benja's, temporal arteritis, or other emergent systemic condition at this time. Patient is aware this condition can change from initial presentation and she needs to monitor symptoms closely. Pt was given diflucan here. I will send her with flagyl and PCN. Conservative measures otherwise for symptoms. Call to schedule an appointment with a dentist for further evaluation and management. Recheck with your PCM this week as well. Return to the ED with any worsening/concerning symptoms otherwise as reviewed in discharge. Patient is in agreement. - Vital Signs Vital signs: Temp Pulse Resp BP Pulse Ox 97.8 F 95 16 176/101 H 99 02/07/19 13:17 02/07/19 12:56 02/07/19 13:17 02/07/19 12:56 02/07/19 13:17 - Laboratory Result Diagrams: 02/07/19 13:40 02/07/19 13:40 Laboratory results interpreted by me: 02/07/19 02/07/19 13:40 13:40 Glucose 374 H Urine Protein 30 H Urine Glucose (UA) >=500 H Urine Blood SMALL H Leukocyte Esterase Rfl SMALL H Discharge - Discharge Clinical Impression: Pain, dental, Bacterial vaginosis, Vaginal yeast infection Condition: Stable Disposition: HOME, SELF-CARE Instructions: Toothache ([facility]), Penicillin V K ([facility]), Metronidazole ([facility]), Vaginosis, Bacterial ([facility]) Additional Instructions: [place] and floss twice daily Maintain fluid intake Take antibiotics as directed Mouthwash, salt water gargles, peroxide rinse as needed Tylenol/ibuprofen as needed Recheck with PCM this week Call today/tomorrow and schedule an appointment with your dentist for further evaluation Consider follow-up with [employer] as well Return to the ED with any worsening symptoms and/or development of fever, headache, facial swelling, swelling of lips/tongue/throat, trouble swallowing, drooling, hoarseness, neck pain/stiffness, chest pain, palpitations, syncope, shortness of breath, trouble breathing, abdominal pain, n/v/d, numbness/tingling, or other worsening symptoms that are concerning to you. Prescriptions: Metronidazole [Flagyl] 500 mg PO BID #14 tablet Penicillin V Potassium [Penicillin Vk 250 mg Tablet] 500 mg PO BID #40 tablet Forms: Elevated Blood Pressure Referrals: [facility] [Provider Group] - Follow up as needed [facility] [Provider Group] - Follow up as needed
[2019-02-07 16:01] LABS: BACTERIA (WET MOUNT) 3+ BACTERIA SEEN; EPITHELIALS (WET MOUNT) 3+ EPITHELIALS SEEN; T.VAGINALIS (WET MOUNT) NO TRICHOMONAS SEEN; WBCS (WET MOUNT) 3+ WBCS SEEN; YEAST (WET MOUNT) YEAST SEEN
[2019-02-07] MEDS ORDERED: FLUCONAZOLE 100 MG TABLET PO ONE (16:13)
[2019-02-07 17:19] VITALS: BP 163/95
== END 2019-02-07 17:18 | disposition home or self-care (01) ==
LOC: ER 12:49
DX: N76.0 Acute vaginitis (principal); B96.89 Other specified bacterial agents as the cause of diseases classified elsewhere; B37.3 Candidiasis of vulva and vagina; L29.2 Pruritus vulvae; K08.9 Disorder of teeth and supporting structures, unspecified; I10 Essential (primary) hypertension; E11.9 Type 2 diabetes mellitus without complications; E78.00 Pure hypercholesterolemia, unspecified; Z86.73 Personal history of transient ischemic attack (TIA), and cerebral infarction without residual deficits
CPT/HCPCS: 36415; 80053; 81001; 85025; 87086; 87210; 99283